=== PATIENT | male | born 1950 | race Caucasian/White ===

== ENCOUNTER 2020-11-08 07:24 | Observation (INO) | payer OTHER ==
[2020-11-08] VITALS (18 sets, daily range): BP systolic 95–164; BP diastolic 47–79
[~2020-11-08] VITALS: Ht 185.4 cm; Wt 136.1 kg
--- NOTE | ~2020-11-08 | H ---
[address] [address] HISTORY AND PHYSICAL Name: MITCHELLJACOB Room: [address] Elsa Maravilla#: [id number] Admission: 11/08/20 Attend Phys: Pasha Mathur MD Discharge: 11/09/20 Date of : 50 Report #: [id number] THIS REPORT FOR: cc: Nabeel Thacker Ghaison F. DO ~ [facility],Medical Records Staff Please refer to the History and Physical performed in the physician's office. By: 1410Medical Records Staff [facility] /PATRIZIA
[2020-11-08 08:44] LABS: HEMATOCRIT 44.6 % (42.0-52.0); HEMOGLOBIN 14.7 gm/dL (14.0-18.0); MCH 28.6 pg (26.0-34.0); MCV 86.7 fL (80.0-100.0); MPV 8.7 fl. (7.2-11.1); RBC 5.14 mil/uL (4.50-6.00); RDW-CV 13.6 % (10.5-14.5); WBC 10.7 thou/uL (4.0-11.0)
[2020-11-08 08:50] LABS: ANION GAP 5 mmol/L (7-16); BUN 23 mg/dL (7-18); CALCIUM 8.6 mg/dL (8.5-10.1); CHLORIDE 105 mmol/L (98-107); CO2 32 mmol/L (21-32); CREATININE 1.2 mg/dL (0.6-1.3); GLUCOSE 121 mg/dL (70-99); POTASSIUM 4.3 mmol/L (3.5-5.1); SODIUM 142 mmol/L (136-145)
[2020-11-08 08:54] LABS: ALBUMIN 3.4 g/dL (3.4-5.0); ALKALINE PHOSPHATASE 55 U/L (46-116); CHOLESTEROL 109 mg/dL (<200); HDL CHOLESTEROL 36 mg/dL (>40); LDL CHOLESTEROL 66 mg/dL (<100); SGOT 14 U/L (15-37); SGPT 20 U/L (30-65); TOTAL BILIRUBIN 0.9 mg/dL (<0.1-1.0); TOTAL PROTEIN 6.6 g/dL (6.4-8.2); TRIGLYCERIDE 36 mg/dL (<150); VLDL 7 mg/dL (<40)
[2020-11-08] MEDS ORDERED: VITAMIN C250 MG PO (08:54)
[2020-11-08] MEDS ORDERED: AMLODIPINE BESY10 MG PO (08:54)
[2020-11-08 08:55] LABS: SERUM ASSESSMENT Clear
[2020-11-08] MEDS ORDERED: COREG6.25 MG PO (08:55)
[2020-11-08] MEDS ORDERED: ASA81BEC PO (08:55)
[2020-11-08 08:56] LABS: APTT 26.6 Seconds (25.0-31.3); PROTIME 11.1 Seconds (9.20-11.50)
[2020-11-08] MEDS ORDERED: ZETIA10 MG PO (08:56)
[2020-11-08] MEDS ORDERED: VITAMIN D325 MC3 PO (08:56)
[2020-11-08] MEDS ORDERED: CATAPRES0.1 MG PO (08:56)
[2020-11-08] MEDS ORDERED: FISH OIL 1,0001 EAC9 PO (08:57)
[2020-11-08] MEDS ORDERED: GLUCOSAMINE1000 MG PO (08:57)
[2020-11-08] MEDS ORDERED: NOVOLIN 70100 UNIT/3 SUBQ (08:58)
[2020-11-08] MEDS ORDERED: LUTEIN20 MG PO (08:59)
[2020-11-08] MEDS ORDERED: OLMESARTAN-HCT1 EAC2 PO (08:59)
[2020-11-08] MEDS ORDERED: METFORMIN HCL500 M3 PO (08:59)
[2020-11-08] MEDS ORDERED: THERA-M CAPLET1 EAC1 PO (09:00)
[2020-11-08] MEDS ORDERED: CRESTOR20 MG PO (09:00)
[2020-11-08] MEDS ORDERED: VITAMIN E400 UNIT PO (09:00)
--- NOTE | 2020-11-08 16:33 | EKG ---
[place] [address] ELECTROCARDIOGRAM REPORT Name: JACOB MEDRANO Room: [address]#: [id number] Admission: 11/08/20 Attend Phys: Pasha Mathur, Discharge: Date of : 50 Date of Service: 11/08/20 1312 Report #: [id number] THIS REPORT FOR: //name// [facility] Test Date: 2020-11-08 Test Time: 13:12:47 Pat Name: JACOB MEDRANO Department: Room: [facility] Gender: M Client Administrator: : 1950 Requested By: Romulo Deluna Order Number: [id number] MD: Romulo Deluna Measurements Intervals [place] Rate: 51 P: 27 AR: 203 QRS: -43 QRSD: 106 T: 92 QT: 454 QTc: 419 Interpretive Statements Sinus bradycardia Atrial premature complex Inferior infarct, old No previous ECG available for comparison Electronically Signed On 11-08-2020 16:33:24 [employer]ORSAGE [employer] by Romulo Deluna [email or web address] <ELECTRONICALLY SIGNED> By: Romulo Deluna MD, [facility] 11/08/20 1633 1312 1312 Romulo Deluna MD, [facility] /EPI
--- NOTE | 2020-11-08 18:24 | CARD ---
[address] [address] CARDIAC CATH REPORT Name: JACOB MEDRANO Room: [address] [place]enukaRRenuka#: [id number] Admission: 11/08/20 Attend Phys: Pasha Mathur MD Discharge: Date of : 50 Report #: [id number] THIS REPORT FOR: cc: Nabeel Thacker Ghaison F. DO ~ Romulo Deluna MD [facility] APPROVED REPORT Study performed: 11/08/2020 09:05:40 Patient Details Patient Status: Out-Patient Room #: The patient is a 70 year-old male Event Personnel Romulo Deluna Assistant Media Buyer, Doris Barber RN Bariatric Program Coordinator, Bhupinder MillsIS Monitor, Naomi Mckinnon RTR Scrub Procedures Performed Art Access - R femoral artery* Left Heart Cath w/or w/o Coronaries [id number] [facility] Hemostasis w/ Mynx Indication Unstable angina , Chest pain Risk Factors Hypercholesterolemia, Hypertension, Diabetes Admission/Lab Medications/Medications given during procedure Verapamil IA 7.5 mg, Nitroglycerin IA 600 mcg, Heparin IV 7000 units Procedure Narrative The patient was brought electively to the Cardiac Catheterization Laboratory and was prepped and draped in a sterile manner. The right wrist was infiltrated with 2% Lidocaine subcutaneous anesthesia. A 6F Papillion sheath was inserted into the right femoral artery. Coronary angiography was performed using coronary diagnostic catheters. The right coronary system was accessed and visualized with a 6F JR4 catheter. The left coronary system was accessed and visualized with a 6F JL4 catheter. The left ventricle was accessed and visualized with a 6F Pigtail catheter. Left ventricular/Aortic Valve gradient assessed via catheter pullback. [place] [address] CARDIAC CATH REPORT Name: JACOB MEDRANO [address]#: [id number] Admission: 11/08/20 Attend Phys: Pasha Mathur MD Discharge: Date of : 50 Report #: [id number] [place]LIN projection. Closure device was deployed with a 6 Fr MynxGrip. The patient tolerated the procedure well and there were no complications associated with the procedure. There was no hematoma. Initially, access gained right radial artery, with a 6F Alexandria sheath inserted. Unable to advance wire and catheter because of brachial loop. Decision made to switch to femoral access for procedure. Radial Vasc band applied to right radial artery and sheath removed. Intraoperative Conscious Sedation Sedation start time: 9:23 Case end Time: 9:58 Fentanyl 25 mcg Versed 3 mg Fluoro Time: 3.9 minutes Dose: DAP 31750 cGycm2 1082 mGy Contrast Type and Amount: Visipaque 130 ml Coronary Angiography The patient's coronary anatomy is right dominant. Diagnostic Cath Left Main 0% stenosis LAD 90% proximal stenosis with findings consistent with a ruptured plaque. Diagonal 1 small vessel with 99% mid stenosis Circumflex 90% mid stenosis Right Coronary 90% mid stenosis with findings consistent with a rupture plaque. R PDA small vessel with 95% ostial stenosis RPLV 90% mid stenosis Left Ventriculography The left ventricular ejection fraction is estimated to be 40-45%. Left ventricular wall motion abnormalities are present. There is no mitral insufficiency. mild hypokinesis noted of the base of the inferior wall and distal anteroapical wall. Hemodynamics The aortic pressure is 98/52 mmHg with a mean of 63 mmHg. The left ventricular pressure is 98/6 mmHg with a mean of mmHg. The left ventricular end diastolic pressure is 20 mmHg. There was no gradient across the aortic valve upon pullback. Pullback from the left ventricle to the aorta revealed no gradient [place] [address] CARDIAC CATH REPORT Name: JACOB MEDRANO Room: [address] Taiwo#: [id number] Admission: 11/08/20 Attend Phys: Pasha Mathur MD Discharge: Date of : 50 Report #: [id number] Conclusion 1. LAD had a 90% proximal stenosis 2. 90% stenosis of the mid circumflex artery. 3. 90% stenosis of the mid RCA 4. LVEF 40-45% Recommendations CABG <ELECTRONICALLY SIGNED> By: Romulo Deluna MD, FAC 11/08/20 182 22 1823Dulises Deluna MD, [facility] /INF
--- NOTE | 2020-11-08 18:37 | CARD ---
[address] [address] CARDIAC CATH REPORT Name: JACOB MEDRANO Room: [address] Elsa Maravilla#: [id number] Admission: 11/08/20 Attend Phys: Pasha Mathur MD Discharge: Date of : 50 Report #: [id number] THIS REPORT FOR: cc: Nabeel Thacker Ghaison F. DO ~ Romulo Deluna MD [facility] APPROVED REPORT Study performed: 11/08/2020 14:13:37 Patient Details Patient Status: Out-Patient Room #: The patient is a 70 year-old male Event Personnel Romulo Deluna Veneer Production Machine Operator, Doris Barber RN RN, Romeo Arvizu EVENT SERVICES MANAGER Monitor, Juwan Carmichael RTR Scrub Procedures Performed Coronary PCI Indication Unstable angina , Chest pain, Patient was offered CABG but refused, instead requesting PTCA. Risk Factors Hypercholesterolemia, Hypertension, Diabetes Admission/Lab Medications/Medications given during procedure Glycoprotein IllbIlla Inhibitors, Heparin Unfract. Procedure Narrative The patient was brought electively to the Cardiac Catheterization Laboratory and was prepped and draped in a sterile manner. The left femoral was infiltrated with 1% Lidocaine subcutaneous anesthesia. A Robeline 6 FR sheath was inserted into the left femoral artery. Coronary angiography was performed using coronary diagnostic catheters. The right coronary system was accessed and visualized with a 6FR LAUNCHER 3DRC catheter. The left coronary system was accessed and visualized with a 6F XB 4.0 catheter. Closure device was deployed with a 6 Fr Angioseal STS 6Fr. The patient tolerated the procedure well and there were no complications associated with the procedure. There was no hematoma. Diagnostic [place] [address] CARDIAC CATH REPORT Name: JACOB MEDRANO Room: [address]#: [id number] Admission: 11/08/20 Attend Phys: Pasha Mathur MD Discharge: Date of : 50 Report #: [id number] earlier in the day, and the patient was brought back to the laboratory for attempts at multivessel stenting. Intraoperative Conscious Sedation Sedation start time: 1446 Case end Time: 1543 Fentanyl 25 mcg Versed 2 mg Fluoro Time: 11.4 minutes Dose: DAP 444129 cGycm2 2792 mGy Contrast Type and Amount: Omnipaque 200 ml Left Ventriculography Left Ventriculography was not performed. Hemodynamics The aortic pressure is 96/53 mmHg with a mean of 71 mmHg. PCI Technique Lesion Anticoagulation was achieved with Heparin. bolus of IV aggrastat given Percutaneous coronary intervention was performed on the Mid Left anterior descending artery segment. The lesion stenosis prior to intervention was 90% with TORY 3 flow. A 6F XB 4.0 Guide Catheter was used to engage the lm ostium. A IG: BMW 190cm Interventional Guidewire was used to cross the lesion. BALLOON DILATION A Balloon catheter Trek RX 2.5 X 8 was inserted and inflated up to 14atm for 7seconds. Repeat angiography revealed the following post-dilatation results: 30% stenosis. STENT DEPLOYMENT A drug-eluting stent Manson RX Stent 3.0X22mm was inserted and inflated up to 9atm for 13seconds. Repeat angiography revealed the following post-stent deployment results: 0% stenosis. Additional Inflation: 10atm for 8seconds. Additional Inflation: 16atm for 18seconds. Final angiography reveals 0 % stenosis with TORY 3 flow. PCI Technique Lesion 2 Percutaneous Coronary Intervention was performed on the mid circumflex artery segment. Percutaneous coronary intervention was performed on the mid circumflex artery segment. The lesion stenosis prior to intervention was 90% with TORY 3 flow. A 6F XB 4.0 [place] [address] CARDIAC CATH REPORT Name: JACOB MEDRANO [address]#: [id number] Admission: 11/08/20 Attend Phys: Pasha Mathur MD Discharge: Date of : 50 Report #: [id number] Catheter was used to engage the lm ostium. A IG: BMW 190cm Interventional Guidewire was used to cross the lesion. Balloon Dilation A Balloon catheter Trek RX 2.5 X 8 was inserted and inflated up to 12atm for 7seconds. Repeat angiography revealed the following post-dilatation results: 40% stenosis. Additional Inflation: 12atm for 8seconds. Additional Inflation: 12atm for 9seconds. 15 JM for 10 sec Stent Deployment A drug-eluting stent Roverto RX Stent 3.0X18mm was inserted and inflated up to 10atm for 13seconds. Repeat angiography revealed the following post-stent deployment results: 0% stenosis. Additional Inflation: 17atm for 15seconds. Additional Inflation: 10atm for 18seconds. Final angiography reveals 0 % stenosis with TORY 3 flow. PCI Technique Lesion 3 Percutaneous Coronary Intervention was performed on the mid right coronary artery. Percutaneous coronary intervention was performed on the mid right coronary artery. The lesion stenosis prior to intervention was 90% with TORY 3 flow. A 6FR LAUNCHER 3DRC Guide Catheter was used to engage the rca ostium. A IG: BMW 190cm Interventional Guidewire was used to cross the lesion. Balloon Dilation A Balloon catheter Trek RX 2.5 X 8 was inserted and inflated up to 12atm for 7seconds. Repeat angiography revealed the following post-dilatation results: 40% stenosis. Because of tortuous iliac artery, unable to torque a JR4 catheter into the RCA. Stent Deployment A drug-eluting stent Roverto RX Stent 3.0X34mm was inserted and inflated up to 11atm for 12seconds. Repeat angiography revealed the following post-stent deployment results: 0% stenosis. Additional Inflation: 13atm for 10seconds. Additional Inflation: 19atm for 13seconds. 22 JM for 10 Sec Final angiography reveals 5 % stenosis with TORY 3 flow. Conclusion 1. successful placement of drug eluting stents in the mid LAD, mid [address] [address] CARDIAC CATH REPORT Name: JACOB MEDRANO Room: [address] Elsa Maravilla#: [id number] Admission: 11/08/20 Attend Phys: Pasha Mathur MD Discharge: Date of : 50 Report #: [id number] circumflex artery, and the mid RCA Recommendations Cardiac Rehabilitation Referral Aggressive Medical Therapy Medications Administered Prasugrel <ELECTRONICALLY SIGNED> By: Romulo Deluna MD, FACC 11/08/201835 35 35Romulo Deluna MD, FACC /INF
[2020-11-09 04:10] VITALS: BP 159/79
[2020-11-09 05:03] LABS: CALCIUM 8.6 mg/dL (8.5-10.1); POTASSIUM 4.5 mmol/L (3.5-5.1); TROPONIN-I LEVEL 0.42 ng/mL (<0.06)
--- NOTE | 2020-11-09 05:37 | NUR ---
PT IS ABLE TO COMMUNICATE HIS NEEDS TO STAFF EFFECTIVELY. HE HAS DENIED THE NEED FOR PAIN MEDICATION UP TO THIS TIME. R & L GROIN CARDIAC CATH SITE DRESSINGS ARE C/D/I UP TO THIS TIME. POSSIBLE DISCHARGE TODAY.
[2020-11-09 07:30] VITALS: BP 163/81
[2020-11-09 11:42] VITALS: BP 178/83
[2020-11-09 12:43] VITALS: BP 178/83
[2020-11-09] MEDS ORDERED: EFFIENT10 MG PO (16:08)
[2020-11-09] MEDS ORDERED: NITROGLYCERIN0.4 MG SUBLING (16:08)
[2020-11-09 16:15] VITALS: BP 178/83
== END 2020-11-09 16:20 | disposition home or self-care (01) ==
LOC: M.CL 07:24 → M.TBA-CV 11:34 → M.2W 16:10
PROVIDERS: Internal Medicine Cardiovascular Disease; ADMIT Internal Medicine Cardiovascular Disease; ATTEND Internal Medicine Cardiovascular Disease
DX: I25.110 Atherosclerotic heart disease of native coronary artery with unstable angina pectoris (principal); E78.00 Pure hypercholesterolemia, unspecified; E11.9 Type 2 diabetes mellitus without complications; I10 Essential (primary) hypertension; Z88.0 Allergy status to penicillin